=== PATIENT | female | born 1955 | race American Indian/Alaskan Native ===

== ENCOUNTER 2016-11-08 15:43 | Emergency (ER) | payer MEDICAID ==
[2016-11-08 16:25] VITALS: BP 141/68
[2016-11-08] MEDS ORDERED: TORADOL IM ONE (17:15)
[2016-11-08] MEDS ORDERED: FLEXERIL PO ONE (17:15)
--- NOTE | 2016-11-08 17:36 | Emergency Department Report ---
ED Back Pain/Injury HPI - General Chief Complaint: Back Pain/Injury Stated Complaint: LOWER BACK PAIN Time Seen by Provider: 11/08/16 17:14 Source: patient, family Mode of arrival: Ambulatory Limitations: No Limitations - History of Present Illness MD Complaint: back pain Onset/Timin -: Sudden, days(s) Similar Symptoms Previously: Yes Place: home Radiation: right leg Severity: moderate Severity scale (0 -10): 5 Quality: burning, sharp Consistency: intermittent Improves With: other (rest) Worsens With: movement, other (bending twisting) Context: turning/twisting Associated Symptoms: denies: weakness, numbness, difficulty urinating, fever/ chills, loss of appetite, nausea/vomiting, seizure, shortness of breath Treatments Prior to Arrival: other (none) - Related Data Home Medications Medication Instructions Recorded Confirmed Last Taken Aspirin [Baby Aspirin] 81 mg PO QDAY 02/25/13 02/25/13 02/24/13 10:00 Pravastatin Sodium [Pravastatin] 10 mg PO DAILY 02/25/13 02/25/13 02/24/13 10:00 Previous Rx's Medication Instructions Recorded Last Taken Type Lisinopril/Hydrochlorothiazide 1 tab PO QDAY #30 tablet 02/01/13 02/24/13 10:00 Rx [Zestoretic 20-25 mg] Famotidine [Pepcid] 20 mg PO DAILY #30 tablet 02/25/13 Unknown Rx HYDROcodone/APAP 5-325 [[place] 1 - 2 each PO Q6HR PRN #20 tablet 02/25/13 Unknown Rx 5/325 mg] Diclofenac Dr [Pritesh Rowe] 75 mg PO Q12H #30 tablet 05/25/13 Unknown Rx HYDROcodone/APAP 5-325 [[place] 1 each PO Q6HR PRN #16 tablet 05/25/13 Unknown Rx 5-325 mg TAB] Ibuprofen [Motrin] 800 mg PO TID PRN #30 tablet 12/03/14 Unknown Rx Ondansetron [Zofran Odt] 8 mg PO Q12HR #14 tab.rapdis 12/03/14 Unknown Rx Acetaminophen [Acetaminophen TAB] 1,000 mg PO Q6HR #60 tablet 11/08/16 Unknown Rx Cyclobenzaprine [Flexeril] 10 mg PO TID PRN #30 tablet 11/08/16 Unknown Rx Allergies Allergy/AdvReac Type Severity Reaction Status Date / Time No Known Allergies Allergy Unverified 02/01/13 11:35 ED Review of Systems ROS: Stated complaint: LOWER BACK PAIN Other details as noted in HPI Constitutional: denies: chills, fever Eyes: denies: eye pain, eye discharge, vision change ENT: denies: ear pain, throat pain Respiratory: denies: cough, shortness of breath, wheezing Cardiovascular: denies: chest pain, palpitations Endocrine: no symptoms reported Gastrointestinal: denies: abdominal pain, nausea, diarrhea Genitourinary: denies: urgency, dysuria, discharge Musculoskeletal: back pain Skin: denies: rash, lesions Neurological: denies: headache, weakness, numbness, paresthesias, vertigo Psychiatric: denies: anxiety, depression Hematological/Lymphatic: denies: easy bleeding, easy bruising ED Past Medical Hx - Past Medical History Previous Medical History?: Yes Hx Hypertension: Yes Hx Arthritis: Yes Additional medical history: HIGH CHOLESTEROL - Surgical History Past Surgical History?: Yes Hx Cholecystectomy: Yes Additional Surgical History: C-spine fusion 15 years ago. tubal ligation - Social History Smoking Status: Never Smoker Substance Use Type: None - Medications Home Medications: Home Medications Medication Instructions Recorded Confirmed Last Taken Type Lisinopril/Hydrochlorothiazide 1 tab PO QDAY #30 tablet 02/01/13 02/24/13 10: 00 Rx [Zestoretic 20-25 mg] Aspirin [Baby Aspirin] 81 mg PO QDAY 02/25/13 02/25/13 02/24/13 10:00 History Famotidine [Pepcid] 20 mg PO DAILY #30 tablet 02/25/13 Unknown Rx HYDROcodone/APAP 5-325 [[place] 1 - 2 each PO Q6HR PRN #20 tablet 02/25/13 Unknown Rx 5/325 mg] Pravastatin Sodium [Pravastatin] 10 mg PO DAILY 02/25/13 02/25/13 02/24/13 10: [address] [Pritesh Rowe] 75 mg PO Q12H #30 tablet 05/25/13 Unknown Rx HYDROcodone/APAP 5-325 [[place] 1 each PO Q6HR PRN #16 tablet 05/25/13 Unknown Rx 5-325 mg TAB] Ibuprofen [Motrin] 800 mg PO TID PRN #30 tablet 12/03/14 Unknown Rx Ondansetron [Zofran Odt] 8 mg PO Q12HR #14 tab.rapdis 12/03/14 Unknown Rx Acetaminophen [Acetaminophen TAB] 1,000 mg PO Q6HR #60 tablet 11/08/16 Unknown Rx Cyclobenzaprine [Flexeril] 10 mg PO TID PRN #30 tablet 11/08/16 Unknown Rx ED Physical Exam - General Limitations: No Limitations General appearance: alert, in no apparent distress - Head Head exam: Present: atraumatic, normocephalic - Eye Eye exam: Present: normal appearance - ENT ENT exam: Present: mucous membranes moist - Neck Neck exam: Present: normal inspection, full ROM. Absent: tenderness, lymphadenopathy, thyromegaly - Respiratory Respiratory exam: Present: normal lung sounds bilaterally. Absent: respiratory distress, wheezes, stridor, decreased breath sounds - Cardiovascular Cardiovascular Exam: Present: regular rate, normal rhythm. Absent: systolic murmur, diastolic murmur, rubs, gallop - GI/Abdominal GI/Abdominal exam: Present: soft, normal bowel sounds. Absent: tenderness - Rectal Rectal exam: Present: deferred - Extremities Exam Extremities exam: Present: normal inspection - Expanded Back Exam Expanded Back exam: Present: decreased rectal tone. Absent: saddle anesthesia Back exam: Sciatic Notch Tenderness: Right, Negative Straight Leg Raising: Left , Right - Neurological Exam Neurological exam: Present: alert, oriented X3, CN II-XII intact, normal gait, motor sensory deficit, reflexes normal - Psychiatric Psychiatric exam: Present: normal affect, normal mood - Skin Skin exam: Present: warm, dry, intact, normal color. Absent: rash ED Course Vital Signs 11/08/16 16:22 Temperature 98.4 F Pulse Rate 69 Respiratory 18 Rate Blood Pressure 141/68 O2 Sat by Pulse 100 Oximetry ED Medical Decision Making - Medical Decision Making pt is a61 y/o aaf with hx chronic back and should pain secondary to arthritis who presents for right sided low back pain radiating into right buttock and leg x 2 days pt denies fall injury or trauma, as "it just acts up sometimes" pt no long taking naproxen for pain , pt has primary care will see same next week exam today : pt appears well , nad , back: no posterior vertebral point tenderness no paraspinus muscle tenderness neg straight leg raise, strength 5/5 / bilat bending and twist reproducing discomfort in sciatic region there is no numbness no paresthesia no weakness no loss or decrease in bowel or bladder function pain reduced to 2/10 after ultram po given in ecc, plan :D/C to home with Tylenol 1gm po qid , flexeril 10 mg po tid prn spasm, back stretches, pt will follow up with primary care doctor as discussed. pt verbalized agreement and understanding with discharge plan. Critical care attestation.: If time is entered above; I have spent that time in minutes in the direct care of this critically ill patient, excluding procedure time. ED Disposition Clinical Impression: Low back strain, Chronic back pain Disposition: TO HOME OR SELFCARE Is pt being admited?: No Does the pt Need Aspirin: No Condition: Good Instructions: Chronic Back Pain (ED) Prescriptions: Acetaminophen [Acetaminophen TAB] 1,000 mg PO Q6HR #60 tablet Cyclobenzaprine [Flexeril] 10 mg PO TID PRN #30 tablet PRN Reason: Spasms Forms: Work/School Release Form(ED) Time of Disposition: 17:46
== END 2016-11-08 18:04 | disposition home or self-care (01) ==
LOC: ED 15:43
DX: S39.012A Strain of muscle, fascia and tendon of lower back, initial encounter (principal); G89.29 Other chronic pain; I10 Essential (primary) hypertension; M19.90 Unspecified osteoarthritis, unspecified site; E78.00 Pure hypercholesterolemia, unspecified; Z79.82 Long term (current) use of aspirin; Z98.890 Other specified postprocedural states; X58.XXXA Exposure to other specified factors, initial encounter; Y93.9 Activity, unspecified; Y99.9 Unspecified external cause status; Y92.9 Unspecified place or not applicable
CPT/HCPCS: 96372; 99282; J1885

== ENCOUNTER 2016-12-03 17:23 | Emergency (ER) | payer MEDICAID ==
--- NOTE | 2016-12-03 17:33 | Emergency Department Report ---
Chief Complaint: Wound/Laceration Stated Complaint: CUT MIDDLE FINGER Time Seen by Provider: 12/03/16 17:29 - HPI History of Present Illness: PT states she was cleaning slicer and she accidentally cut her R ring finger. Pt states she is UTD with her TDap - ROS Review of Systems: + bleeding - Exam Physical Exam: dressing to R ring finger MSE screening note: Focused history and physical exam performed. Due to findings the following was ordered: room ED Disposition for MSE Condition: Stable
[2016-12-03 17:35] VITALS: BP 142/83
[2016-12-03] MEDS ORDERED: MOTRIN PO ONE (18:21)
--- NOTE | 2016-12-03 18:33 | Emergency Department Report ---
ED Laceration HPI - HPI Chief Complaint: Wound/Laceration Stated Complaint: CUT MIDDLE FINGER Time Seen by Provider: 12/03/16 17:29 Occurred When: Today Location: Upper Extremity (distal ring finger) Severity: mild Tetanus Status: Up to Date (as per patient 3 years ago) Laceration Symptoms: No Foreign Body Sensation, No Numbness, No Weakness, No Pain Other History: This is a 61-year-old female well-nourished with nontoxic or ill in appearance presents with a laceration to the distal ring finger on the right hand. Patient stated has been cleaning the slicer when she accidentally cut her finger. Patient is up-to-date with tetanus shot 3 years ago. Patient stated there is no minimal bleeding that is controlled now. Patient denies any numbness, tingling, joint swelling, joint redness, fever, chills, nausea, vomiting, chest pain or shortness of breath. Denies any allergies. Patient stated has slight pain that is subsided now. Denies significant past medical history. ED Review of Systems ROS: Stated complaint: CUT MIDDLE FINGER Other details as noted in HPI Constitutional: denies: chills, fever Eyes: denies: eye pain, eye discharge, vision change ENT: denies: ear pain, throat pain Respiratory: denies: cough, shortness of breath, wheezing Cardiovascular: denies: chest pain, palpitations Endocrine: no symptoms reported Gastrointestinal: denies: abdominal pain, nausea, diarrhea Genitourinary: denies: urgency, dysuria, discharge Musculoskeletal: denies: back pain, joint swelling, arthralgia Skin: denies: rash, lesions Neurological: denies: headache, weakness, paresthesias Psychiatric: denies: anxiety, depression Hematological/Lymphatic: denies: easy bleeding, easy bruising ED Past Medical Hx - Past Medical History Hx Hypertension: Yes Hx Arthritis: Yes Additional medical history: HIGH CHOLESTEROL. BURSITIS - Surgical History Hx Cholecystectomy: Yes Additional Surgical History: C-spine fusion 15 years ago. tubal ligation - Social History Smoking Status: Never Smoker Substance Use Type: None - Medications Home Medications: Home Medications Medication Instructions Recorded Confirmed Last Taken Type Lisinopril/Hydrochlorothiazide 1 tab PO QDAY #30 tablet 02/01/13 02/24/13 10: 00 Rx [Zestoretic 20-25 mg] Aspirin [Baby Aspirin] 81 mg PO QDAY 02/25/13 02/25/13 02/24/13 10:00 History Famotidine [Pepcid] 20 mg PO DAILY #30 tablet 02/25/13 Unknown Rx HYDROcodone/APAP 5-325 [[place] 1 - 2 each PO Q6HR PRN #20 tablet 02/25/13 Unknown Rx 5/325 mg] Pravastatin Sodium [Pravastatin] 10 mg PO DAILY 02/25/13 02/25/13 02/24/13 10: [address] [[address]] 75 mg PO Q12H #30 tablet 05/25/13 Unknown Rx HYDROcodone/APAP 5-325 [[place] 1 each PO Q6HR PRN #16 tablet 05/25/13 Unknown Rx 5-325 mg TAB] Ibuprofen [Motrin] 800 mg PO TID PRN #30 tablet 12/03/14 Unknown Rx Ondansetron [Zofran Odt] 8 mg PO Q12HR #14 tab.rapdis 12/03/14 Unknown Rx Acetaminophen [Acetaminophen TAB] 1,000 mg PO Q6HR #60 tablet 11/08/16 Unknown Rx Cyclobenzaprine [Flexeril] 10 mg PO TID PRN #30 tablet 11/08/16 Unknown Rx Cephalexin [Keflex] 500 mg PO Q8HR 5 Days 12/03/16 Unknown Rx Ibuprofen [Motrin 600 MG tab] 600 mg PO Q8H PRN #15 tablet 12/03/16 Unknown Rx Laceration Physical Exam - Exam General: Vital signs noted. No distress. Alert and acting appropriately. GENERAL: The patient is a well-developed, well-nourished female in no apparent distress. Patient is alert and acting appropriately for age. Alert and oriented 3, no apparent distress, normal gait, atraumatic. HEENT: Head is normocephalic and atraumatic. PERRL, Extraocular muscles are intact. Pupils are equal, round, and reactive to light and accommodation. Nares appeared normal. Mouth is well hydrated and without lesions. Mucous membranes are moist. Posterior pharynx clear of any exudate or lesions. Mouth is well hydrated and without lesions. Tonsils not erythematous or swollen. Uvula midline. Tongue elevated. Mucous members are moist. Posterior pharynx clear, no exudate or lesions. Patent airways. NECK: Supple. No carotid bruits. No lymphadenopathy or thyromegaly.nontender. No meningitic signs are noted. LUNGS: Clear to auscultation. Non labor breathing. No intercostal retractions. Symmetrical with respiration, no wheezing, no rales, or crackles. HEART: Regular rate and rhythm without murmur, rubs or gallops. No reproducible. S1, S2 present, regular rate and rhythm without murmur, no rubs, no gallops. ABDOMEN: Soft, nontender, and nondistended. Positive bowel sounds. No hepatosplenomegaly was noted. No guarding or rebound tenderness, negative epigastric bruit. Negative psoas sign, negative oliver sign, negative McBurneys sign EXTREMITIES: Without any cyanosis, clubbing, rash, lesions or edema. Peripheral pulses intact. Capillary refill less than 2 seconds. Full range of motion bilaterally. 1 cm superficial laceration linear with no bleeding to right distal ring finger. No pus or drainage noted. No swelling. No numbness or tingling. NEUROLOGIC: Cranial nerves II through XII are grossly intact. Alert and oriented x 3. Normal gait. Symmetrical strength and sensation. Reflexes 2+ throughout. Cerebellar testing normal. GCS score of 15. PSYCHIATRIC: Normal affect with no suicidal or homicidal ideations. Laceration Location: Upper Extremity (right distal ring finger) Laceration Exam: Yes Normal Distal CMS, No Foreign Body, No Exposed Tendon, Vessel, or Nerve, No Tendon Injury ED Course Vital Signs 12/03/16 17:32 Temperature 98.9 F Pulse Rate 89 Respiratory 17 Rate Blood Pressure 142/83 O2 Sat by Pulse 100 Oximetry - Reevaluation(s) Reevaluation #1: 12/03/16 18:32 Patient is currently present at the bedside. Patient's is laughing with no signs of distress noted. - Laceration /Wound Repair Right Finger Wound Location: upper extremity (right distal ring finger) Wound Length (cm): 1 Wound's Depth, Shape: superficial, linear Wound Explored: clean Irrigated w/ Saline (ccs): 500 (soaked finger with 500 saline and Hibiclens) Betadine Prep?: Yes Wound Debrided: minimal Wound Repaired With: Dermabond Sterile Dressing Applied?: Yes Progress: Under sterile field, I used 500 normal saline with Hibiclens soak the right finger. I used Betadine to prep the wound area. A tourniquet has been placed on the proximal right ring finger prior to Dermabond. No bleeding is noted. Dermabond has been applied to the area. A sterile dressing has been applied to the area with tape. Patient did well. No signs of distress. No complications noted. ED Medical Decision Making - Medical Decision Making Ed course: This is a 61-year-old female that presents with 1 cm laceration to right distal ring finger 1- patient was examined by me. Laceration has been repaired with Dermabond. 2- patient stated she received tetanus for 3 ago. 3- ibuprofen 600 mg by mouth was delivered to the patient ED as well as discharged. 4- patient received Keflex the time of discharge. 5- at time time of discharge, the patient does not seem toxic or ill in appearance. No acute signs of distress noted. Patient agrees to discharge treatment plan of care. No further questions noted by the patient. 6-patient was instructed to follow up with her primary care doctor in 3-5 days or symptoms of pus, drainage, swelling, numbness or tingling present report back to the emergency room as was possible. Critical care attestation.: If time is entered above; I have spent that time in minutes in the direct care of this critically ill patient, excluding procedure time. ED Disposition Clinical Impression: Laceration Disposition: DC-01 TO HOME OR SELFCARE Is pt being admited?: No Does the pt Need Aspirin: No Condition: Stable Instructions: Laceration (ED), Acute Wound Care (ED), Ibuprofen (By mouth) Additional Instructions: Keep area clean and dry for 24 hours. Take ibuprofen as needed for pain. Follow-up with her primary care doctor or symptoms of pus, drainage, swelling, numbness or tingling present report back to the emergency room as was possible. Prescriptions: Cephalexin [Keflex] 500 mg PO Q8HR 5 Days Ibuprofen [Motrin 600 MG tab] 600 mg PO Q8H PRN #15 tablet PRN Reason: Pain Referrals: OLMAN BALDWIN JR, MD [Staff Physician] - 3-5 Days PRIMARY CARE, [Referring] - 3-5 Days [facility] [Outside] - 3-5 Days [facility] [Outside] - 3-5 Days Forms: Work/School Release Form(ED)
== END 2016-12-03 19:36 | disposition home or self-care (01) ==
LOC: ED 17:23
DX: S61.214A Laceration without foreign body of right ring finger without damage to nail, initial encounter (principal); I10 Essential (primary) hypertension; M19.90 Unspecified osteoarthritis, unspecified site; E78.00 Pure hypercholesterolemia, unspecified; W26.9XXA Contact with unspecified sharp object(s), initial encounter; Y93.89 Activity, other specified; Y92.89 Other specified places as the place of occurrence of the external cause; Y99.8 Other external cause status
CPT/HCPCS: 99282

== ENCOUNTER 2020-06-15 11:50 | Emergency (ER) | payer MEDICAID ==
--- NOTE | 2020-06-15 14:10 | Emergency Department Report ---
ED General Adult HPI - General Chief complaint: Rectal Pain Stated complaint: HEMMOROIDS Time Seen by Provider: 06/15/20 14:08 Source: patient Mode of arrival: Ambulatory Limitations: No Limitations - History of Present Illness Initial comments: Patient is a 64-year-old female presents emergency room complaints of constipation for 5 days. She states that she used a suppository and took a laxative but still not been able to have a bowel movement. She states that she is also been having pain from her hemorrhoids. She states that she has pain in the hemorrhoids whenever she tries to have a bowel movement. She denies any abdominal pain, rectal bleeding, fever, vomiting, nausea. She is able to tolerate p.o. intake. She has a past medical history of transverse myelitis. No allergies to medications. - Related Data Home Medications Medication Instructions Recorded Confirmed Last Taken Aspirin [Baby Aspirin] 81 mg PO QDAY 02/25/13 02/25/13 02/24/13 10:00 Pravastatin Sodium [Pravastatin] 10 mg PO DAILY 02/25/13 02/25/13 02/24/13 10:00 Previous Rx's Medication Instructions Recorded Last Taken Type Lisinopril/Hydrochlorothiazide 1 tab PO QDAY #30 tablet 02/01/13 02/24/13 10:00 Rx [Zestoretic 20-25 mg] Famotidine [Pepcid] 20 mg PO DAILY #30 tablet 02/25/13 Unknown Rx HYDROcodone/APAP 5-325 [[place] 1 - 2 each PO Q6HR PRN #20 tablet 02/25/13 Unknown Rx 5/325 mg] Diclofenac Dr [Pritesh Rowe] 75 mg PO Q12H #30 tablet 05/25/13 Unknown Rx HYDROcodone/APAP 5-325 [[place] 1 each PO Q6HR PRN #16 tablet 05/25/13 Unknown Rx 5-325 mg TAB] Ibuprofen [Motrin] 800 mg PO TID PRN #30 tablet 12/03/14 Unknown Rx Ondansetron [Zofran Odt] 8 mg PO Q12HR #14 tab.rapdis 12/03/14 Unknown Rx Acetaminophen [Acetaminophen TAB] 1,000 mg PO Q6HR #60 tablet 11/08/16 Unknown Rx Cyclobenzaprine [Flexeril] 10 mg PO TID PRN #30 tablet 11/08/16 Unknown Rx Ibuprofen [Motrin 600 MG tab] 600 mg PO Q8H PRN #15 tablet 12/03/16 Unknown Rx cephALEXin [Keflex] 500 mg PO Q8HR 5 Days cap 12/03/16 Unknown Rx Docusate Sodium [Colace] 100 mg PO BID PRN #30 capsule 06/15/20 Unknown Rx Glycerin Adult 2 gm 2 gm [place] DAILY PRN #10 supp.rect 06/15/20 Unknown Rx Lidocaine [Lidocaine GEL] 1 applicatio TP BID PRN #30 06/15/20 Unknown Rx gel..gram. Polyethylene Glycol 3350 [Miralax] 7 gm PO DAILY PRN #1 powder 06/15/20 Unknown Rx Allergies Allergy/AdvReac Type Severity Reaction Status Date / Time No Known Allergies Allergy Verified 12/03/16 17:31 ED Review of Systems ROS: Stated complaint: HEMMOROIDS Other details as noted in HPI Comment: All other systems reviewed and negative ED Past Medical Hx - Past Medical History Hx Hypertension: Yes Hx Arthritis: Yes Additional medical history: HIGH CHOLESTEROL. BURSITIS. Transverse Myelitis - Surgical History Hx Cholecystectomy: Yes Additional Surgical History: C-spine fusion 15 years ago. tubal ligation - Social History Smoking Status: Current Every Day Smoker - Medications Home Medications: Home Medications Medication Instructions Recorded Confirmed Last Taken Type Lisinopril/Hydrochlorothiazide 1 tab PO QDAY #30 tablet 02/01/13 02/24/13 10:00 Rx [Zestoretic 20-25 mg] Aspirin [Baby Aspirin] 81 mg PO QDAY 02/25/13 02/25/13 02/24/13 10:00 History Famotidine [Pepcid] 20 mg PO DAILY #30 tablet 02/25/13 Unknown Rx HYDROcodone/APAP 5-325 [[place] 1 - 2 each PO Q6HR PRN #20 tablet 02/25/13 Unknown Rx 5/325 mg] Pravastatin Sodium [Pravastatin] 10 mg PO DAILY 02/25/13 02/25/13 02/24/13 10:[address] [Voltaren Dr] 75 mg PO Q12H #30 tablet 05/25/13 Unknown Rx HYDROcodone/APAP 5-325 [[place] 1 each PO Q6HR PRN #16 tablet 05/25/13 Unknown Rx 5-325 mg TAB] Ibuprofen [Motrin] 800 mg PO TID PRN #30 tablet 12/03/14 Unknown Rx Ondansetron [Zofran Odt] 8 mg PO Q12HR #14 tab.rapdis 12/03/14 Unknown Rx Acetaminophen [Acetaminophen TAB] 1,000 mg PO Q6HR #60 tablet 11/08/16 Unknown Rx Cyclobenzaprine [Flexeril] 10 mg PO TID PRN #30 tablet 11/08/16 Unknown Rx Ibuprofen [Motrin 600 MG tab] 600 mg PO Q8H PRN #15 tablet 12/03/16 Unknown Rx cephALEXin [Keflex] 500 mg PO Q8HR 5 Days cap 12/03/16 Unknown Rx Docusate Sodium [Colace] 100 mg PO BID PRN #30 capsule 06/15/20 Unknown Rx Glycerin Adult 2 gm 2 gm [place] DAILY PRN #10 supp.rect 06/15/20 Unknown Rx Lidocaine [Lidocaine GEL] 1 applicatio TP BID PRN #30 06/15/20 Unknown Rx gel..gram. Polyethylene Glycol 3350 [Miralax] 7 gm PO DAILY PRN #1 powder 06/15/20 Unknown Rx ED Physical Exam - General Limitations: Physical Limitation General appearance: alert, in no apparent distress - Head Head exam: Present: atraumatic, normocephalic - Eye Eye exam: Present: normal appearance - ENT ENT exam: Present: mucous membranes moist - Respiratory Respiratory exam: Present: normal lung sounds bilaterally. Absent: respiratory distress, wheezes, rales, rhonchi, stridor, chest wall tenderness, accessory muscle use, decreased breath sounds, prolonged expiratory - Cardiovascular Cardiovascular Exam: Present: regular rate, normal rhythm, normal heart sounds. Absent: systolic murmur, diastolic murmur, rubs, gallop - GI/Abdominal GI/Abdominal exam: Present: soft, normal bowel sounds. Absent: distended, tenderness, guarding, rebound, rigid - Rectal Rectal exam: Present: other (support representative: ROBERTO berumen, there are two non thrombosed hemorrhoids at the 12 oclock position, there is a large stool ball present in the rectal vault, no gross blood, no induration or fluctuance) - Neurological Exam Neurological exam: Present: alert, oriented X3 - Psychiatric Psychiatric exam: Present: normal affect, normal mood - Skin Skin exam: Present: warm, dry, intact ED Course Vital Signs 06/15/20 06/15/20 06/15/20 12:27 14:06 20:00 Temperature 97.6 F 97.9 F Pulse Rate 86 86 Respiratory 16 18 16 Rate Blood Pressure 102/54 Blood Pressure 123/66 [Right] O2 Sat by Pulse 98 97 Oximetry - Reevaluation(s) Reevaluation #1: 06/15/20 18:58 Nurse was having difficulty with enema and was not having good return, digital rectal exam performed and copious amounts of hard stool removed, advised nurse to repeat enema ED Medical Decision Making - Radiology Data Radiology results: report reviewed Ordering Physician: ROMELIA MANLEY Date of Service: 06/15/20 Procedure(s): XR abdomen 2V Accession Number(s): [id number] cc: ROMELIA MANLEY Fluoro Time In Minutes: ABDOMEN 1 VIEW(S) INDICATION / CLINICAL INFORMATION: constipation. COMPARISON: None available. FINDINGS: TUBES / LINES: None. BOWEL GAS PATTERN/EXTRALUMINAL GAS: Moderate constipation. No acute findings. No pneumatosis or secondary signs of free air. ADDITIONAL FINDINGS: No significant additional findings. IMPRESSION: 1. Moderate constipation without acute abnormality. Signer Name: Spencer Gann MD Signed: 06/15/2020 8:21 PM Workstation Name: [id number] Transcribed By: ISRRAEL Dictated By: Spencer Gann MD Electronically Authenticated By: Spencer Gann MD Signed Date/Time: 06/15/202020 DD/ 20 TD/TT: - Medical Decision Making Patient is a 64-year-old female presents emergency room complaints of constipation for 5 days. She states that she used a suppository and took a laxative but still not been able to have a bowel movement. She states that she is also been having pain from her hemorrhoids. She states that she has pain in the hemorrhoids whenever she tries to have a bowel movement. She denies any abdominal pain, rectal bleeding, fever, vomiting, nausea. She is able to tolerate p.o. intake. She has a past medical history of transverse myelitis. No allergies to medications. vitals are normal. on exam: support representative: ROBERTO berumen, there are two non thrombosed hemorrhoids at the 12 oclock position, there is a large stool ball present in the rectal vault, no gross blood, no induration or fluctuance, no abdominal tenderness on exam, no guarding, rebound no rigidity, normal bowel sounds, no peritoneal signs. Nurse was having difficulty with enema and was not having good return, digital rectal exam performed and copious amounts of hard stool removed, advised nurse to repeat enema. Patient was able to have multiple large bowel movements. XR abd: 1. Moderate constipation without acute abnormality. Patient is not having any obstructive symptoms, she was able to have large bowel movements. Patient given prescription for MiraLAX, Colace, glycerin suppositories, lidocaine gel, Anusol. Advised patient Please take medication as prescribed. Follow-up with your primary care doctor. Follow-up with a GI doctor. Increase your water intake. Increase your fiber intake. Return to emergency room for any new or worsening symptoms. - Differential Diagnosis Constipation, fecal impaction, bowel obstruction, hemorrhoids Critical care attestation.: If time is entered above; I have spent that time in minutes in the direct care of this critically ill patient, excluding procedure time. ED Disposition Clinical Impression: Fecal impaction in rectum, External hemorrhoid Constipation Qualifiers: Constipation type: unspecified constipation type Qualified Code(s): K59.00 - Constipation, unspecified Disposition: - TO HOME OR SELFCARE Is pt being admited?: No Does the pt Need Aspirin: No Condition: Stable Instructions: Constipation, Adult, Hemorrhoids, Fecal Impaction Additional Instructions: Please take medication as prescribed. Follow-up with your primary care doctor. Follow-up with a GI doctor. Increase your water intake. Increase your fiber intake. Return to emergency room for any new or worsening symptoms. Prescriptions: Docusate Sodium [Colace] 100 mg PO BID PRN #30 capsule PRN Reason: constipation Glycerin Adult 2 gm 2 gm [place] DAILY PRN #10 supp.rect PRN Reason: constipation Lidocaine [Lidocaine GEL] 1 applicatio TP BID PRN #30 gel..gram. PRN Reason: pain Polyethylene Glycol 3350 [Miralax] 7 gm PO DAILY PRN #1 powder PRN Reason: constipation Referrals: PRIMARY CARE, [Primary Care Provider] - 2-3 Days [facility] [Provider Group] - 2-3 Days Time of Disposition: 20:31 Print Language: MAORI
[2020-06-15 20:22] VITALS: BP 123/66
--- NOTE | 2020-06-15 20:26 | XRay Report ---
ABDOMEN 1 VIEW(S) INDICATION / CLINICAL INFORMATION: constipation. COMPARISON: None available. FINDINGS: TUBES / LINES: None. BOWEL GAS PATTERN/EXTRALUMINAL GAS: Moderate constipation. No acute findings. No pneumatosis or secon lilia signs of free air. ADDITIONAL FINDINGS: No significant additional findings. IMPRESSION: 1. Moderate constipation without acute abnormality. Signer Name: Spencer Gann MD Signed: 06/15/2020 8:21 PM Workstation Name: [id number]
== END 2020-06-15 22:00 | disposition home or self-care (01) ==
LOC: ED 11:50
DX: K56.41 Fecal impaction (principal); K64.4 Residual hemorrhoidal skin tags; I10 Essential (primary) hypertension; M19.91 Primary osteoarthritis, unspecified site; F17.200 Nicotine dependence, unspecified, uncomplicated; Z98.890 Other specified postprocedural states; Z79.1 Long term (current) use of non-steroidal anti-inflammatories (NSAID); Z79.899 Other long term (current) drug therapy
CPT/HCPCS: 74019